=== PATIENT | female | born 2000 | race African-American/Black ===

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

== ENCOUNTER 2021-01-15 12:07 | Emergency (ER) | payer MEDICAID ==
[~2021-01-15] VITALS: Ht 182.9 cm; Wt 79.7 kg
--- NOTE | 2021-01-15 13:41 | NUR ---
PT AMBULATORY TO ROOM 7 W/ C/O R THROAT SWELLING AND PAIN. STATES SHE HAD A TONSILLAR ABSCESS 1 MONTH AGO AND HAD IT DRAINED THEN. STATES SHE HAS BEEN COMPLIANT W/ MEDS. LAST NIGHT HAD NO SX TODAY AWOKE W/ TONSIL ISSUES. [facility]
[2021-01-15 13:54] VITALS: BP 110/70
[2021-01-15] MEDS ORDERED: AMOXICILLIN/CLAV 875-125MG TABLET ONE (14:16)
[2021-01-15] MEDS ORDERED: HYDROcodone/APAP 7.5-325MG/15ML UDC ONE (14:16)
[2021-01-15] MEDS ORDERED: DEXAMETHASONE 4 MG TABLET ONE (14:16)
[2021-01-15] MEDS ORDERED: AMOXICILLIN/CLAV 875-125MG TABLET PO ONE (14:30)
[2021-01-15] MEDS ORDERED: DEXAMETHASONE 4 MG TABLET PO ONE (14:30)
[2021-01-15] MEDS ORDERED: HYDROcodone/APAP 7.5-325MG/15ML UDC PO ONE (14:30)
== END 2021-01-15 14:46 | disposition home or self-care (01) ==
LOC: ED 14:08
DX: J02.0 Streptococcal pharyngitis (principal)
CPT/HCPCS: 99284